=== PATIENT | male | born 1975 | race Caucasian/White ===

== ENCOUNTER 2020-03-01 10:53 | Inpatient (IN) | payer BC, SELFPAY ==
[2020-03-01] VITALS (29 sets, daily range): BP systolic 151–192; BP diastolic 103–150; PULSE 86–112; RESP 18–31; TEMP 36.1–36.8; O2SAT 94–100; BMI 34.7
--- NOTE | ~2020-03-01 | XR_ITS ---
EXAMINATION: XR chest 2V DATE: 03/01/2020 11:36 INDICATION: Shortness of breath and cough TECHNIQUE: Frontal and lateral views of the chest are obtained COMPARISON: 09/28/2007 FINDINGS: Cardiomegaly is noted. There is no pleural effusion or pneumothorax. The visualized osseous structures are normal. No focal airspace opacities are identified. IMPRESSION: 1. Cardiomegaly. Reviewed, dictated and finalized at location A. IMPRESSION: 1. Cardiomegaly.
--- NOTE | ~2020-03-01 | US_ITS ---
EXAMINATION: US renal BI DATE: 03/01/2020 15:25 INDICATION: Renal failure TECHNIQUE: Multiple ultrasound grayscale images of the kidneys were obtained. COMPARISON: None. FINDINGS: The right kidney measures 11.0 x 5.4 x 5.2 cm. The left kidney measures 9.4 x 7.0 x 5.9 cm. Bilateral increased renal cortical echogenicity consistent with medical renal disease. There is no hydronephro sis in either kidney. No stones identified. The bladder is normal. IMPRESSION: 1. Bilateral increased renal cortical echogenicity consistent with medical renal disease. No hydrone phrosis. Reviewed, dictated and finalized at location A. IMPRESSION: 1. Bilateral increased renal cortical echogenicity consistent with medical omega al disease. No hydronephrosis.
--- NOTE | ~2020-03-01 | US_ITS ---
EXAMINATION: US venous doppler [facility] DATE: 03/02/2020 08:19 INDICATION: Lower limb edema TECHNIQUE: Weber scale images without and with compression and Doppler images of the bilateral lower e xtremity veins were obtained. COMPARISON: None FINDINGS: The right common femoral vein, profunda femoral vein, femoral vein, popliteal vein, peroneal trunk, p osterior tibial veins, and greater saphenous vein are patent. The left common femoral vein, profunda femoral vein, femoral vein, popliteal vein, peroneal trunk, po sterior tibial veins, and greater saphenous vein are patent. IMPRESSION: 1. Patent bilateral lower extremity veins. No evidence of deep venous thrombosis. Reviewed, dictated and finalized at location A. IMPRESSION: 1. Patent bilateral lower extremity veins. No evidence of deep venous thrombosi s.
--- NOTE | 2020-03-01 11:09 | ECG_ITS ---
Measurements Intervals [place] Rate: 110 P: 44 IL: 143 QRS: 1 QRSD: 98 T: 135 QT: 336 QTc: 455 Interpretive Statements SINUS TACHYCARDIA LEFT ATRIAL ENLARGEMENT LEFT VENTRICULAR HYPERTROPHY AND ST-T CHANGE BORDERLINE ST-T WAVE ABNORMALITY- LATERAL LEADS CANNOT RULE OUT SEPTAL INFARCT, AGE INDETERMINATE BASELINE ARTIFACT- I, II, AVR, AVL ABNORMAL ECG Electronically Signed On 03-01-2020 11:50:39 CDT by David Evans D.O.
--- NOTE | 2020-03-01 11:10 | ED.SOB ---
HPI - SOB/Dyspnea General Chief Complaint: Extremity Problem,Nontraumatic Stated Complaint: high blood pressure/edema Time Seen by Provider: 03/01/20 11:01 History of Present Illness HPI Narrative: Bilateral lower extremity swelling for the past several days. Getting worse. Associated with cough, SOB and easy fatigue. Noted to have severly elevated blood pressure during triage. He reports h/o hypertension currently untreated. No chest pain, fever, nausea, vomiting. Related Data Home Medications Medication Instructions Recorded Confirmed No Home Medications 03/01/20 03/01/20 Allergies Allergy/AdvReac Type Severity Reaction Status Date / Time No Known Allergies Allergy Mild Verified 03/01/20 14:55 Review of Systems Review of Systems: All systems reviewed & are unremarkable except as noted in HPI and below Constitutional: Constitutional: Denies chills, Reports fatigue, Denies fever(s) and Denies weakness ENT: Denies dizziness Cardiovascular: Cardiovascular: Denies chest pain Respiratory: Respiratory: Reports dyspnea PMFSH Family History Family History Father Bladder cancer Mother Breast cancer Social History Social History Smoking status: Never smoker Second hand tobacco smoke exposure: No Alcohol intake: never Substance use: never Spiritual care concerns: No Exam Const: General: no acute distress and alert Orientation/consciousness: patient oriented x3 HENMT: Head: normal to inspection Neck: Neck: normal visual inspection Chest: Chest palpation & inspection: normal inspection of the chest Resp: Effort & Inspection: tachypneic Auscultation: clear to auscultation bilaterally Cardio: Rate: tachycardic Rhythm: regular rhythm GI: GI Palp: Yes Soft to palpation and No Tenderness to palpation present (GI) Skin: General skin exam: normal color Neuro: General: patient oriented x3, moves all extremities and CN's II-XI intact bilaterally Speech: Abnormal speech present Extrem: General: edema (2+) bilateral Course Vital Signs Vital signs: Vital Signs Temperature 36.4 C L 03/01/20 11:03 Pulse Rate 111 H 03/01/20 11:03 Respiratory Rate 18 03/01/20 11:03 Blood Pressure 183/142 H 03/01/20 11:03 Pulse Oximetry 100 03/01/20 11:03 Temperature 36.6 C 03/01/20 13:37 Pulse Rate 95 03/01/20 14:00 Respiratory Rate 22 H 03/01/20 13:37 Blood Pressure 165/113 H 03/01/20 13:37 Pulse Oximetry 98 03/01/20 13:37 MDM - SOB/Dyspnea MDM Narrative Medical decision making narrative: He has exam, x-ray, and lab finding concerning for CHF. This is new for him. I will plan to admit him to the IMU for further evaluation and treatment. Differential Diagnosis Differential diagnosis: Likely congestive heart failure and community acquired pneumonia Medical Records Attestation: I reviewed the patient's medical records. Lab Data Attestation: I reviewed the patient's lab results. Result diagrams: 03/01/20 11:14 03/01/20 11:13 Labs: Lab Results 03/01/20 03/01/20 03/01/20 Range/Units 11:13 11:13 11:14 WBC 11.1 H (4.5-10.0) K/mm3 RBC 5.46 (4.6-6.20) M/mm3 Hgb 17.2 (14.0-18.0) g/dL Hct 49.2 (42.0-52.0) % MCV 90.1 (80-100) fl MCH 31.5 (26-34) pg MCHC 35.0 (32-36) g/dl RDW 13.8 (11.5-14.5) % Plt Count 371 (150-375) k/mm3 MPV 9.6 (7.4-10.4) fl Immature Gran % (Auto) 0.4 (0-0.5) % Neut % (Auto) 70.9 (45.5-73.1) % Lymph % (Auto) 19.6 (18.3-44.2) % Frederick % (Auto) 7.2 (2.6-8.5) % Eos % (Auto) 1.3 (0-4.4) % Baso % (Auto) 0.6 (0.2-1.2) % Lymph # (Auto) 2.18 (0.9-3.2) K/mm3 Frederick # (Auto) 0.8 H (0.1-0.6) K/mm3 Eos # (Auto) 0.1 (0-0.3) K/mm3 Baso # (Auto) 0.1 (0.0-0.1) K/mm3 Abs Immat Gran (auto) 0.04 H (0.00-0.031) K/mm3 Absolute N
[2020-03-01 11:29] LABS: Basophils Absolute Auto 0.1 K/mm3 (0.0-0.1); Basophils Percent Auto 0.6 % (0.2-1.2); Eosinophils Absolute Auto 0.1 K/mm3 (0-0.3); Eosinophils Percent Auto 1.3 % (0-4.4); Hematocrit 49.2 % (42.0-52.0); Hemoglobin 17.2 g/dL (14.0-18.0); Immature Granulocyte Absolute 0.04 K/mm3 (0.00-0.031); Immature Granulocyte Percent A 0.4 % (0-0.5); Lymphocytes Absolute Auto 2.18 K/mm3 (0.9-3.2); Lymphocytes Percent Auto 19.6 % (18.3-44.2); Mean Corpuscular Hemoglobin 31.5 pg (26-34); Mean Corpuscular Volume 90.1 fl (80-100); Mean Platelet Volume 9.6 fl (7.4-10.4); Monocytes Absolute Auto 0.8 K/mm3 (0.1-0.6); Monocytes Percent Auto 7.2 % (2.6-8.5); Neutrophils Absolute Auto 7.9 K/mm3 (1.3-6.7); Neutrophils Percent Auto 70.9 % (45.5-73.1); Platelet Count Result 371 k/mm3 (150-375); Red Blood Count 5.46 M/mm3 (4.6-6.20); Red Cell Distribution Width 13.8 % (11.5-14.5); White Blood Count 11.1 K/mm3 (4.5-10.0)
[2020-03-01] MEDS: METOPROLOL TARTRATE INJ 5 MG/5 ML VIAL IV PUSH (11:34)
[2020-03-01] MEDS: NITROGLYCERIN OINTMENT 1 INCH DOSE TRANSDERM ×3 (11:35→23:53)
[2020-03-01 11:38] LABS: Anion Gap 7 mmol/L (8-16); Blood Urea Nitrogen 22 mg/dL (9-20); Calcium 8.5 mg/dL (8.4-10.2); Carbon Dioxide 25 mmol/L (22-30); Chloride 104 mmol/L (98-107); Estimated CRCL calculation 65 ml/min; Estimated Glomerular Filt Rate 51; Glucose 119 mg/dL (75-110); Potassium 4.4 mmol/L (3.4-5.0); Sodium 136 mmol/L (137-145)
[2020-03-01 11:40] LABS: INR 1.3; Prothrombin Time 15.4 Seconds (11.1-14.7)
[2020-03-01 11:41] LABS: Partial Thromboplastin Time 25.9 SECONDS (22.3-36.8)
[2020-03-01 11:54] LABS: NT Pro B Type Natriuretic Pept 3430 PG/ML (5-100); Troponin I 0.042 ng/mL (0.000-0.034)
[2020-03-01] MEDS: FUROSEMIDE INJ 40 MG/4 ML VIAL IV PUSH ×2 (12:07→21:41)
--- NOTE | 2020-03-01 13:40 | ECHO_ITS ---
Patient Info Name: Sterling Mckeon Age: 44 years : 1975 Gender: Male Ht: 68 in Wt: 209 lbs BSA: 2.16 m2 HR: 100 bpm BP: 165 / 113 mmHg Heart Rhythm: Sinus Rhythm Technical Quality: Good Exam Date: 03/01/2020 3:37 PM Exam Location: [facility] Patient Status: Inpatient Admit Date: 03/01/2020 Staff Ordering Physician: Shane Bueno MD Sales And Training Specialist: Garrison Allred RDCS Attending Provider: Fidelia Roland MD Referring Physician: Ximena PA; Exam Type: CA echo dop color flow w con Study Info Indications I50.9 - Heart failure, unspecified Complete two-dimensional, color flow and Doppler transthoracic echocardiogram is performed with contrast to opacify the left ventricle and to improve the deliniation of the left ventricle endocardial borders. Contrast/Agitated Saline Contrast/Ag. Saline: Definity Amount: 3.00 ml Administered By: Valarie Springer RN Existing IV Access: Yes History/Risk Factors Edema; CHF w/ BNP 3430, elevated trops, cardiomegaly, SOB, HTN, orthopnea. Summary 1. Left ventricular chamber dimension is moderately enlarged. 2. Left ventricular systolic function is severely reduced, estimated EF 25-30%. 3. There is overall mildly increased left ventricular wall thickness except for the mid to distal anteroseptal wall and apex that appears thinned. 4. There is global hypokinesis more pronounced in the distal anteroseptal wall and apex. 5. There is LV apical thrombus noted mesures 1X1.5 cm. 6. Right ventricular chamber dimension is top normal in size. 7. Right ventricular systolic function is normal. 8. Left atrial chamber dimension is mildly enlarged. 9. The mitral valve has thickened leaflets. 10. There is mild to moderate mitral valve regurgitation. MR severity could be underestimated due to excentric jet. 11. There is mild tricuspid valve regurgitation. 12. Moderate pulmonary hypertension, estimated pulmonary arterial systolic pressure is 45-50 mmHg. 13. Dilated inferior vena cava with no collapse upon inspiration consistent with elevated right atrial pressure. 14. There is no pericardial effusion. Left Ventricle Left ventricular chamber dimension is moderately enlarged. Left ventricular systolic function is severely reduced, estimated EF 25-30%. There is overall mildly increased left ventricular wall thickness except for the mid to distal anteroseptal wall and apex that appears thinned. There is global hypokinesis more pronounced in the distal anteroseptal wall and apex. The left ventricular diastolic function is abnormal. There is LV apical thrombus noted mesures 1X1.5 cm. E/e' is elevated suggestive of elevated left atrial pressure. Right Ventricle Right ventricular chamber dimension is top normal in size. Right ventricular systolic function is normal. Left Atria Left atrial chamber dimension is mildly enlarged. Right Atria Right atrial chamber dimension is normal. Aortic Valve The aortic valve is trileaflet. There is no aortic valve sclerosis. There is no aortic valve stenosis. There is no aortic valve regurgitation. Pulmonic Valve The pulmonic valve is normal. There is no pulmonic valve stenosis. There is no pulmonic regurgitation. Mitral Valve The mitral valve has thickened leaflets. There is no mitral valve stenosis. There is mild to moderate mitral valve regurgitation. MR severity could be underestimated due to excentric jet. [facility]
--- NOTE | 2020-03-01 14:09 | PM.CNCAR ---
Assessment and Plan Assessment and plan (1) Congestive heart failure: Code(s): I50.9 - Heart failure, unspecified Status: Acute Assessment and Plan: He has new onset of congestive heart failure, possibly from hypertensive heart disease with long standing uncontrolled/untreated HTN. Other etiology include ischemia or valvular disease Will check 2D echocardiogram to assess LV function and rule out valvular disease Start Lasix 40 mg IV BID with close monitoring of in/out and kidney function If echo shows low EF then would prefer use BB/YANETH for BP control. For now will start Metoprolol 25 mg daily. Follow creatinine while diurising. If stable will start YANETH. He also has nitro paste on (2) Hypertensive emergency: Code(s): I16.1 - Hypertensive emergency Status: Acute Assessment and Plan: With evidence of end organ damage suggested by decompensated CHF and Cr of 1.5 Plan as above History of Present Illness History of Present Illness Consult date/time: 03/01/20 14:09 44 y/o with no significant past medical history however no medical follow up for years who presented with lower ext edema He reports fatigue and lack of energy with possibly dyspnea on exertion for few weeks. Over the last few days he has worsening lower ext edema as well as orthopnea. He was trying to see family doctor and appointment scheduled next week but eventually he decide to seek medical attention and presented to ER. He was noted to have markedly elevated BP at 190/150 on admission. Chest X ray showed cardiomegaly. His BNP is elevated at 3400 and his initial trop is 0.04. Creatinine 1.5 with unknown baseline. He received lasix, IV metoprolol and has nitro patch placed. Most recent BP 158/90 EKG shows normal sinus rhythm with LVH criteria and secondary repolarization changes He reports family history of heart disease on his mother side. Never smoker. rare alcohol abuse Reason For Visit: Lower extremity edema. Review of Systems Review of Systems: All systems reviewed & are unremarkable except as noted in HPI and below Constitutional: Constitutional: Reports fatigue and Denies headache(s) Eyes: Eyes: Denies blurry vision ENT: Reports Normal hearing present and Denies headache(s) Cardiovascular: Cardiovascular: Denies chest pain, Denies diaphoresis, Reports pedal edema, Reports leg edema, Denies lightheadedness, Denies palpitations and Denies dyspnea Respiratory: Respiratory: Reports cough and Reports dyspnea Gastrointestinal: Gastrointestinal: Denies abdominal pain Musculoskeletal: Musculoskeletal: Denies back pain Neurologic: Reports Normal hearing present and Denies headache(s) Psychiatric: Psychiatric: Denies anxiety Endocrine: Endocrine: Denies fatigue and Denies palpitations PMFSH Social History Social History Gender identity (if verbalized by the patient): Male Meds Home Medications and Allergies Home Medications Medication Instructions Recorded Confirmed Type No Home Medications 03/01/20 03/01/20 History Allergies Allergy/AdvReac Type Severity Reaction Status Date / Time No Known Allergies Allergy Mild Verified 03/01/20 11:02 Vital Signs Vital Signs - 24 hr 03/01/20 11:03 03/01/20 11:04 03/01/20 11:15 Temperature 36.4 C L Pulse Rate 110 H 111 H 109 H Respiratory Rate 23 H 19 26 H Blood Pressure 183/142 H 192/150 H Pulse Oximetry 99 95 95 03/01/20 11:16 03/01/20 11:33 03/01/20 11:34 Temperature Pulse Rate 107 H 112 H 112 H Respiratory Rate 20 31 H Blood Pressure 185/131 H Pulse Oximetry 97 98 03/01/20 11:37 03/01/20 11:45 03/01/20 11:46 Temperature Pulse Rate 110 H 95 96 Respiratory Rate 30 H 29 H 23 H Blood Pressure 176/134 H 173/139 H Pulse Oximetry 96 94 95 03/01/20 12:00 03/01/20 12:01 03/01/20 12:09 Temperature Pulse Rate 94 96 98 Respiratory Rate 25 H 24 H 21 H Blood Pressure 171/135 H 171/135 H Pulse O
--- NOTE | 2020-03-01 14:40 | PM.IMHP ---
H&P: HPI History of Present Illness Date/Time: 03/01/20 14:40 Chief complaint: Lower extremity edema. Narrative: Sterling Mckeon is a 44-year-old male who presented to the emergency department earlier today for evaluation of lower extremity edema. He maintains that he is pretty healthy, indicating that he tries to eat a healthy diet and exercises frequently, including 1 to 2 mile runs and frequent hikes up the [employer]. Within the last month or so, he has developed dyspnea on exertion which he initially attributed to deconditioning from the the inability to go to the gym due to the COVID-19 virus. In the last week or more, he has had intermittent lower extremity edema and on a couple of occasions he has woken in the middle the night with shortness of breath that he attributed to panic attacks. He decided to go to [facility] today for evaluation and was directed to the emergency department instead, where on arrival his blood pressure was as high as 192/150. Upon further questioning, he admits that he has been told that his blood pressures have been a little high various times over the years, dating as far back as 2002. He was seen here in the emergency department in September of 2007 and at that time he was discharged with a prescription for hydralazine 20 mg as his blood pressure was 180/119. It sounds as though he took 2 months worth of that medication but stopped for unclear reasons. Over the years he has checked his blood pressure [facility] or the like, and on occasion would be a little high. He thought through diet and exercise that his blood pressure was controlled, and it does not sound as though he sees a doctor very often. In any regard, he has also been more fatigued over the past 1 month, to the point where he will nod off at inconvenient times, such as at the dinner table. At times his father has mentioned that he snores loudly and appears to have episodes of apnea as well. He has no complaints at the time my evaluation and denies headache, vertigo, paresthesias, focal weakness, chest pain, pleuritic pain, and palpitations. he has no known history of coronary artery disease, congestive heart failure, kidney disease, thyroid disease, venous thromboembolism, or sleep apnea. Review of Systems Review of Systems: Narrative: 12 systems were reviewed with pertinent positives and negatives as per HPI. No fever chills. He frequently gets sweats, which he blames on the heat this time of year. He has rare headaches, which he attributes to change in weather. He does suffer from seasonal allergies and has pretty significant postnasal drip this time of year for which she will take Benadryl as needed. He avoids ephedrine type drugs. He denies recent travel and exposure to sick contacts or those positive for COVID-19. His appetite has been as per usual however more recently he notes bloating, even when eating small meals. No symptoms of heartburn or indigestion however he has occasional nausea. He drinks at least 10 glasses of water a day and tries a stay hydrated however over the past 1 month or so he has noticed a decrease in urine output. He denies dysuria, hematuria, foamy urine, urinary hesitancy and urgency. He also has some concerns with inability to maintain a full erection over the last several months. No melena or hematochezia. He has been bit depressed over the last several months, which he attributes to the COVID-19 virus and illness debility to do the things that he enjoys doing. He denies harmful thoughts. Except as documented, all other systems were reviewed and are negative. [facility] Past Medical History Medical History (Updated 03/01/20 @ 18:06 by Tamica Lund PA-C) Hypertension Longstanding hypertension dating back at least to 2007, which has gone untreated as of 02/2020. Seasonal allergies Surgical History Surgical History (Updated 03/01/20 @ 17:59 by Tamica Lund PA-C) No history of previous surgery Family Histo
[2020-03-01 14:47] LABS: Alanine Aminotransferase 60 U/L (4-50); Albumin Level 3.8 g/dL (3.5-5.1); Alkaline Phosphatase 76 U/L (38-126); Aspartate Amino Transferase 56 U/L (17-59); Bilirubin,Total 1.4 mg/dL (0.2-1.3)
[2020-03-01 15:00] LABS: Troponin I 0.042 ng/mL (0.000-0.034)
[2020-03-01 15:33] LABS: Add Urine Microscopic? NO; Appearance Urine Clear (Clear); Bilirubin Urine Negative (Negative); Blood Urine Negative (Negative); Color Urine Straw (Yellow); Glucose Urine UA Negative (Negative); Ketones Urine Negative (Negative); Leukocyte Esterase Ur Negative LEU/UL (NEGATIVE); Nitrate Urine Negative (Negative); Protein Urine Negative (Negative); Specific Grav Ur 1.006 (1.001-1.035); Urobilinogen Urine Negative mg/dL (<2.0)
--- NOTE | 2020-03-01 15:40 | ADMGEN ---
This patient, Sterling Mckeon, was admitted to IMU Room 203-01 on 03-01-2020 at 1310. Patient/family oriented to hospital policies and general routines including ID bracelet, bed and alarms, visiting hours, pain management, procedures, bathroom and other care routines, personal items, smoking policy, room service/diet, and visiting hours. Valuables list has been completed. Information on how to activate the Rapid Response Team has been discussed. Patient/Family are encouraged to report perceived risks to care and to ask questions if they do not understand what they are told or what they should do.
[2020-03-01] MEDS: PERFLUTREN LIPID MICROSPHERES 1.5 ML VIAL DILUTED TO 10 ML TOTAL VOLUME IV PUSH (16:17)
[2020-03-01] MEDS: METOPROLOL SUCCINATE EXT REL 25 MG TABCR PO (16:47)
[2020-03-01 17:25] LABS: INR 1.3; Partial Thromboplastin Time 25.2 SECONDS (22.3-36.8); Prothrombin Time 15.5 Seconds (11.1-14.7)
[2020-03-01 17:42] LABS: Troponin I 0.046 ng/mL (0.000-0.034)
[2020-03-01] MEDS: HEPARIN SOD/D5W 100 UNITS/ML 25,000 UNITS/250 ML BAG 13 UNITS IV CONT (17:43)
[2020-03-01 19:41] LABS: Hemoglobin A1C 5.5 % (<5.7)
[2020-03-02] VITALS (15 sets, daily range): BP systolic 118–174; BP diastolic 60–121; PULSE 76–107; RESP 16–20; TEMP 35.8–36.6; O2SAT 96–100
[2020-03-02 00:37] LABS: Anion Gap 9 mmol/L (8-16); Blood Urea Nitrogen 24 mg/dL (9-20); Calcium 8.3 mg/dL (8.4-10.2); Carbon Dioxide 29 mmol/L (22-30); Chloride 98 mmol/L (98-107); Estimated CRCL calculation 65 ml/min; Estimated Glomerular Filt Rate 56; Glucose 88 mg/dL (75-110); Magnesium 2.1 mg/dL (1.6-2.3); Phosphorus 3.7 mg/dL (2.5-4.5); Potassium 3.1 mmol/L (3.4-5.0); Sodium 136 mmol/L (137-145)
[2020-03-02 00:39] LABS: Partial Thromboplastin Time 68.2 SECONDS (22.3-36.8)
[2020-03-02] MEDS: HEPARIN SODIUM 5,000 UNITS/ML VIAL 3000 UNITS IV PUSH ×2 (00:50→15:25)
[2020-03-02] MEDS: POTASSIUM CHLORIDE 20 MEQ TABLET 40 MEQ PO (01:27)
[2020-03-02] MEDS: NITROGLYCERIN OINTMENT 1 INCH DOSE TRANSDERM ×4 (05:59→23:53)
[2020-03-02 06:51] LABS: Basophils Absolute Auto 0.1 K/mm3 (0.0-0.1); Basophils Percent Auto 0.6 % (0.2-1.2); Eosinophils Absolute Auto 0.3 K/mm3 (0-0.3); Eosinophils Percent Auto 2.9 % (0-4.4); Hematocrit 45.9 % (42.0-52.0); Immature Granulocyte Absolute 0.04 K/mm3 (0.00-0.031); Immature Granulocyte Percent A 0.3 % (0-0.5); Lymphocytes Absolute Auto 2.56 K/mm3 (0.9-3.2); Lymphocytes Percent Auto 21.5 % (18.3-44.2); Mean Corpuscular HGB Conc 34.9 g/dl (32-36); Mean Corpuscular Hemoglobin 31.3 pg (26-34); Mean Corpuscular Volume 89.6 fl (80-100); Mean Platelet Volume 9.1 fl (7.4-10.4); Monocytes Absolute Auto 1.3 K/mm3 (0.1-0.6); Monocytes Percent Auto 10.5 % (2.6-8.5); Neutrophils Absolute Auto 7.7 K/mm3 (1.3-6.7); Neutrophils Percent Auto 64.2 % (45.5-73.1); Platelet Count Result 289 k/mm3 (150-375); Red Blood Count 5.12 M/mm3 (4.6-6.20); Red Cell Distribution Width 13.3 % (11.5-14.5); White Blood Count 11.9 K/mm3 (4.5-10.0)
[2020-03-02 07:02] LABS: Partial Thromboplastin Time 153.2 SECONDS (22.3-36.8)
[2020-03-02 07:05] LABS: Alanine Aminotransferase 60 U/L (4-50); Albumin Level 3.5 g/dL (3.5-5.1); Alkaline Phosphatase 81 U/L (38-126); Anion Gap 8 mmol/L (8-16); Aspartate Amino Transferase 59 U/L (17-59); Bilirubin,Total 1.7 mg/dL (0.2-1.3); Blood Urea Nitrogen 20 mg/dL (9-20); Calcium 8.2 mg/dL (8.4-10.2); Carbon Dioxide 27 mmol/L (22-30); Chloride 100 mmol/L (98-107); Cholesterol 187 mg/dL (0-200); Estimated CRCL calculation 69 ml/min; Estimated Glomerular Filt Rate > 60; Glucose 99 mg/dL (75-110); HDL Direct 26 mg/dL; Magnesium 2.1 mg/dL (1.6-2.3); Phosphorus 3.4 mg/dL (2.5-4.5); Potassium 3.6 mmol/L (3.4-5.0); Sodium 135 mmol/L (137-145); Triglycerides 87 mg/dL (<150)
[2020-03-02 07:16] LABS: LDL Cholesterol Direct 152 mg/dL
[2020-03-02] MEDS: METOPROLOL SUCCINATE EXT REL 25 MG TABCR PO ×2 (08:12→08:57)
[2020-03-02] MEDS: FUROSEMIDE INJ 40 MG/4 ML VIAL IV PUSH ×2 (08:13→21:09)
[2020-03-02] MEDS: POTASSIUM CHLORIDE 20 MEQ TABLET.ER PO (08:57)
[2020-03-02] MEDS: hydrALAZINE HCL 20 MG/ML VIAL 10 MG IV PUSH (09:46)
--- NOTE | 2020-03-02 10:27 | PM.IMPN ---
Progress Note: A&P Assessment and Plan (1) Congestive heart failure: Qualifiers: Heart failure chronicity: acute Heart failure type: unspecified Qualified Code(s): I50.9 - Heart failure, unspecified Code(s): I50.9 - Heart failure, unspecified Status: Acute Assessment and Plan: Likely due to longstanding uncontrolled and untreated hypertension. Echocardiogram results: 1. Left ventricular chamber dimension is moderately enlarged. 2. Left ventricular systolic function is severely reduced, estimated EF 25-30%. 3. There is overall mildly increased left ventricular wall thickness except for the mid to distal anteroseptal wall and apex that appears thinned. 4. There is global hypokinesis more pronounced in the distal anteroseptal wall and apex. 5. There is LV apical thrombus noted mesures 1X1.5 cm. 6. Right ventricular chamber dimension is top normal in size. 7. Right ventricular systolic function is normal. 8. Left atrial chamber dimension is mildly enlarged. 9. The mitral valve has thickened leaflets. 10. There is mild to moderate mitral valve regurgitation. MR severity could be underestimated due to excentric jet. 11. There is mild tricuspid valve regurgitation. 12. Moderate pulmonary hypertension, estimated pulmonary arterial systolic pressure is 45-50 mmHg. 13. Dilated inferior vena cava with no collapse upon inspiration consistent with elevated right atrial pressure. 14. There is no pericardial effusion. 03/02, increased metoprolol and added ACEI Continue diuresis Consider spironolactone (2) Hypertensive emergency: Code(s): I16.1 - Hypertensive emergency Status: Acute Assessment and Plan: Evidence of end organ damage with decompensated congestive heart failure and elevated troponin and serum creatinine (now normalized) PRN hydralazine for bp 160/100 or higher Continue furosemide for diuresis, nitro paste, and metoprolol succinate increased to 50 mg daily. Possible coronary angio per cardiology (3) Renal failure: Code(s): N19 - Unspecified kidney failure Status: Acute Assessment and Plan: Renal ultrasound shows bilateral increased renal cortical echogenicity consistent with medical renal disease. Creatinine normalized 03/02 (4) Elevated troponin: Code(s): R79.89 - Other specified abnormal findings of blood chemistry Status: Acute Assessment and Plan: Likely due to decompensated congestive heart failure and hypertensive emergency, as he gives no history of chest pain or exertional chest pain. Further evaluation per cardiology (5) Suspected sleep apnea: Code(s): R29.818 - Other symptoms and signs involving the nervous system Status: Acute Assessment and Plan: Apnea link c/w moderately severe JACLYN Trial of autotitrating cpap. (6) Apical mural thrombus: Code(s): I51.3 - Intracardiac thrombosis, not elsewhere classified Status: Acute Assessment and Plan: Heparin Will likely require intermission coordinator anticoagulation (7) Mitral regurgitation: Code(s): I34.0 - Nonrheumatic mitral (valve) insufficiency Status: Acute Assessment and Plan: ACEI DIuresis Subjective Date/time seen: 03/02/20 10:27 Interval history: 03/02. No chest pain or sob. Tolerated diet. Less swelling in ankles. Review of Systems Review of Systems: All systems reviewed & are unremarkable except as noted in HPI and below Exam Narrative: Exam Narrative: HEENT: EOMI, PERRL, sclerae nonicteric, pharyngeal mucosa pink and intact NECK: No JVD, adenopathy, or thyromegaly CHEST
[2020-03-02] MEDS: POTASSIUM CHLORIDE 20 MEQ TABLET PO (11:36)
[2020-03-02] MEDS: HEPARIN SOD/D5W 100 UNITS/ML 25,000 UNITS/250 ML BAG 12 UNITS IV CONT (13:11)
--- NOTE | 2020-03-02 13:50 | PM.PNCARD ---
Progress Note: A&P Assessment and Plan (1) Congestive heart failure: Qualifiers: Heart failure chronicity: acute Heart failure type: unspecified Qualified Code(s): I50.9 - Heart failure, unspecified Code(s): I50.9 - Heart failure, unspecified Status: Acute Assessment and Plan: He has new discovery of cardiomyopathy with EF 25-30% and new onset of congestive heart failure. he was also found to have LV apical thrombus He will need [facility] to assess for ischemic vs non ischemic cardiomyopathy. Will plan that once better compensated from CHF standpoint, potentially on Wednesday He was started on Metoprolol. Agree with increasing dose to 50 mg daily Will add Lisinopril 10 mg daily Continue Lasix 40 mg IV BID with close monitoring of in/out and kidney function. So far creatinine improving with effective diuresing (Net negative 2 liters over the last 24 hours) (2) Hypertensive emergency: Code(s): I16.1 - Hypertensive emergency Status: Acute Assessment and Plan: With evidence of end organ damage suggested by decompensated CHF and Cr of 1.5 BP better compared to admission. Metoprolol dose increased. Will start Lisinopril today. (3) Apical mural thrombus: Code(s): I51.3 - Intracardiac thrombosis, not elsewhere classified Status: Acute Assessment and Plan: Continue IV heparin. Will eventually need to start warfarin once angiogram completed. (4) Mitral regurgitation: Code(s): I34.0 - Nonrheumatic mitral (valve) insufficiency Status: Acute Assessment and Plan: Mild to moderate. probably secondary MR due to dilated LV and mitral annulus Subjective Date/time seen: 03/02/20 13:50 Pre harper echo report showed LV dysfunction and apical thrombus. he was started on heparin. He feels better overall and leg edema is going down He has some left sided chest pain that is positional and he feels it only when he lays down in certain way Tele reviewed. He had short run of NSVT overnight Review of Systems Review of Systems: All systems reviewed & are unremarkable except as noted in HPI and below Constitutional: Constitutional: Denies fatigue and Denies headache(s) Eyes: Eyes: Denies blurry vision ENT: Reports Normal hearing present and Denies headache(s) Cardiovascular: Cardiovascular: Denies chest pain, Denies diaphoresis, Reports pedal edema, Reports leg edema, Denies lightheadedness, Denies palpitations and Reports dyspnea Respiratory: Respiratory: Reports cough and Reports dyspnea Gastrointestinal: Gastrointestinal: Denies abdominal pain Musculoskeletal: Musculoskeletal: Denies back pain Neurologic: Reports Normal hearing present and Denies headache(s) Psychiatric: Psychiatric: Denies anxiety Endocrine: Endocrine: Denies fatigue and Denies palpitations Exam Const: General: no acute distress Eyes: Sclera: sclerae normal Neck: Neck: no JVD Carotids: no bruits Resp: Effort & Inspection: normal respiratory effort Auscultation: clear to auscultation bilaterally Cardio: Rate: regular rate and not tachycardic Rhythm: regular rhythm Heart sounds: no gallops, no murmurs and no rubs Other: ++ lower ext edema Skin: General skin exam: normal color Neuro: Cranial nerves: Yes Normal hearing present Speech: normal speech Extrem: General: normal to inspection and edema Psych: Affect: normal affect Objective Data Vital Signs Vital Signs: Vital Signs - 24 hr 03/01/20 14:00 03/01/20 16:00 03/01/20 16:47 Temperature 36.8 C Pulse Rate 95 99 99 Respiratory Rate 20 Blood Pressure 164/103 H Pulse Oximetry 97 03/01/20 18:00 03/01/20 19:37 03/01/20 20:00 Temperature 36.1 C L Pulse Rate 99 95 92 Respiratory Rate 20 Blood Pressure 152/109 H Pulse Oximetry 96 03/01/20 22:00 03/02/20 00:00 03/02/20 02:00 Temperature 36.3 C L Pulse Rate 97 91 91 Respiratory Rate 20 Blood Pressure 167/119 H Pulse Ox
[2020-03-02] MEDS: lisinopriL 10 MG TABLET PO (14:58)
[2020-03-02 15:09] LABS: Partial Thromboplastin Time 56.2 SECONDS (22.3-36.8)
[2020-03-02 22:05] LABS: Partial Thromboplastin Time 83.7 SECONDS (22.3-36.8)
[2020-03-03] VITALS (16 sets, daily range): BP systolic 111–137; BP diastolic 74–86; PULSE 77–103; RESP 16–20; TEMP 36–36.5; O2SAT 94–98
[2020-03-03 04:25] LABS: Anion Gap 7 mmol/L (8-16); Blood Urea Nitrogen 19 mg/dL (9-20); Calcium 8.5 mg/dL (8.4-10.2); Carbon Dioxide 29 mmol/L (22-30); Chloride 98 mmol/L (98-107); Estimated CRCL calculation 69 ml/min; Estimated Glomerular Filt Rate > 60; Glucose 100 mg/dL (75-110); Magnesium 2.3 mg/dL (1.6-2.3); Potassium 3.5 mmol/L (3.4-5.0); Sodium 134 mmol/L (137-145)
[2020-03-03 04:27] LABS: Partial Thromboplastin Time 79.4 SECONDS (22.3-36.8)
[2020-03-03] MEDS: NITROGLYCERIN OINTMENT 1 INCH DOSE TRANSDERM ×3 (06:35→18:02)
[2020-03-03] MEDS: HEPARIN SOD/D5W 100 UNITS/ML 25,000 UNITS/250 ML BAG 13 UNITS IV CONT (08:56)
[2020-03-03] MEDS: FUROSEMIDE INJ 40 MG/4 ML VIAL IV PUSH (08:58)
[2020-03-03] MEDS: lisinopriL 10 MG TABLET PO (09:01)
[2020-03-03] MEDS: POTASSIUM CHLORIDE 20 MEQ TABLET.ER PO (09:01)
[2020-03-03] MEDS: METOPROLOL SUCCINATE EXT REL 50 MG TABCR PO (09:07)
--- NOTE | 2020-03-03 10:32 | PM.IMPN ---
Progress Note: A&P Assessment and Plan (1) Congestive heart failure: Qualifiers: Heart failure chronicity: acute Heart failure type: unspecified Qualified Code(s): I50.9 - Heart failure, unspecified Code(s): I50.9 - Heart failure, unspecified Status: Acute Assessment and Plan: Patient with newly diagnosed CHF. Likely due to longstanding uncontrolled and untreated HTN. Echocardiogram results: EF 25-30%, thickened LV wall except for the mid to distal anteroseptal wall and apex that appears thinned. Symptomatically much improved. Currently on Lasix IV, nitropaste, Toprol-XL and lisinopril. Consider Aldactone. Cardiology following and appreciate their input. (2) Hypertensive emergency: Code(s): I16.1 - Hypertensive emergency Status: Acute Assessment and Plan: BP 192/150 on admission. Evidence of end organ damage with decompensated congestive heart failure and elevated troponin and serum creatinine. BP better controlled today (03/03). Continue furosemide for diuresis, nitro paste, and metoprolol succinate increased to 50 mg daily. PRN hydralazine for bp 160/100 or higher available. Continue to monitor. (3) Renal failure: Code(s): N19 - Unspecified kidney failure Status: Acute Assessment and Plan: Patient with acute kidney injury with creatinine 1.5 on admission. Renal ultrasound shows bilateral increased renal cortical echogenicity consistent with medical renal disease felt related to his uncontrolled hypertension. Creatinine has normalized. Continue to monitor closely after contrast. (4) Elevated troponin: Code(s): R79.89 - Other specified abnormal findings of blood chemistry Status: Acute Assessment and Plan: Troponin elevated to 0.046 but flat. Most likely related to the decompensated congestive heart failure and hypertensive emergency. Cannot exclude underlying ischemic heart disease but felt less likely. Patient will undergo ischemic evaluation to help determine etiology of his CHF. (5) Suspected sleep apnea: Code(s): R29.818 - Other symptoms and signs involving the nervous system Status: Acute Assessment and Plan: Apnea link c/w moderately severe JACLYN. Trial of autotitrating CPAP last night that patient toelrated well. Continue the same. (6) Apical mural thrombus: Code(s): I51.3 - Intracardiac thrombosis, not elsewhere classified Status: Acute Assessment and Plan: Echo showing: LV apical thrombus noted measures 1X1.5 cm. Related to the severe LV dysfunction. Patient has been started on heparin drip. He will need long-term anticoagulation. This is currently on hold due to possible heart catheterization tomorrow. (7) Mitral regurgitation: Code(s): I34.0 - Nonrheumatic mitral (valve) insufficiency Status: Acute Assessment and Plan: Echo showing mild to moderate mitral valve regurgitation. MR severity could be underestimated due to excentric jet. will need close monitoring. Subjective Date/time seen: 03/03/20 10:32 Interval history: 44yo male with HTN here for new onset CHF. Patient feels well today. He tolerated the CPAP last night without difficulty. He slept well. Minimal pedal edema now. No chest pain. No nausea or vomiting. Shortness of breath is better. Exam Narrative: Exam Narrative: AF 96.8 137/86 90 20 98% ra Gen - NARD Chest - CTA bilaterally, nml RR CV - RRR S1/S2; Telemetry showing significant dysrhythmias Abd - Soft, NT/ND, Positive BS Ext - No pedal edema, 2+ DP Neuro - Alert and oriented. Nonfocal exam. Psych - Nml mood and affect Skin - Warm and dry Objec
--- NOTE | 2020-03-03 14:13 | PM.PNCARD ---
Progress Note: A&P Assessment and Plan (1) Congestive heart failure: Qualifiers: Heart failure chronicity: acute Heart failure type: unspecified Qualified Code(s): I50.9 - Heart failure, unspecified Code(s): I50.9 - Heart failure, unspecified Status: Acute Assessment and Plan: He has new discovery of cardiomyopathy with EF 25-30% He was also found to have LV apical thrombus Will plan [facility] tomorrow to assess for ischemic vs non ischemic cardiomyopathy.No LV gram due to LV thrombus and CHRISTINE on admission He was started on Metoprolol and Lisinopril. Will up titrate dose as BP allows He appears better compensated from CHF standpoint. Will siwthc lasix to Po He had short run of NSVT. May need lifeVest on discharge He is on IV heparin for LV clot. Following [facility] tomorrow will start oral AC (2) Hypertensive emergency: Code(s): I16.1 - Hypertensive emergency Status: Acute Assessment and Plan: With evidence of end organ damage suggested by decompensated CHF and Cr of 1.5 BP better compared to admission. Continue Metoprolol and Lisinopril (3) Apical mural thrombus: Code(s): I51.3 - Intracardiac thrombosis, not elsewhere classified Status: Acute Assessment and Plan: Continue IV heparin. Will eventually need to start oral AC once angiogram completed. (4) Mitral regurgitation: Code(s): I34.0 - Nonrheumatic mitral (valve) insufficiency Status: Acute Assessment and Plan: Mild to moderate. probably secondary MR due to dilated LV and mitral annulus. Continue Lasix Subjective Date/time seen: 03/03/20 14:13 Feels better and leg edema has resolved as well as dyspnea Tele reviewed. Short run of NSVT noted Review of Systems Review of Systems: All systems reviewed & are unremarkable except as noted in HPI and below Constitutional: Constitutional: Denies fatigue and Denies headache(s) Eyes: Eyes: Denies blurry vision ENT: Reports Normal hearing present and Denies headache(s) Cardiovascular: Cardiovascular: Denies chest pain, Denies diaphoresis, Reports pedal edema, Reports leg edema, Denies lightheadedness, Denies palpitations and Reports dyspnea Respiratory: Respiratory: Reports cough and Reports dyspnea Gastrointestinal: Gastrointestinal: Denies abdominal pain Musculoskeletal: Musculoskeletal: Denies back pain Neurologic: Reports Normal hearing present and Denies headache(s) Psychiatric: Psychiatric: Denies anxiety Endocrine: Endocrine: Denies fatigue and Denies palpitations Exam Const: General: no acute distress Eyes: Sclera: sclerae normal Neck: Neck: no JVD Carotids: no bruits Resp: Effort & Inspection: normal respiratory effort Auscultation: clear to auscultation bilaterally Cardio: Rate: regular rate and not tachycardic Rhythm: regular rhythm Heart sounds: no gallops, no murmurs and no rubs Other: ++ lower ext edema Skin: General skin exam: normal color Neuro: Cranial nerves: Yes Normal hearing present Speech: normal speech Extrem: General: normal to inspection and edema Psych: Affect: normal affect Objective Data Vital Signs Vital Signs: Vital Signs - 24 hr 03/02/20 16:00 03/02/20 18:00 03/02/20 19:52 Temperature 36.6 C 36.2 C L Pulse Rate 96 107 H 86 Respiratory Rate 20 16 Blood Pressure 136/81 118/60 Pulse Oximetry 98 96 03/02/20 20:00 03/02/20 22:00 03/03/20 00:00 Temperature 36.2 C L Pulse Rate 91 90 87 Respiratory Rate 16 Blood Pressure 111/78 Pulse Oximetry 94 03/03/20 02:00 03/03/20 03:27 03/03/20 04:00 Temperature 36.2 C L Pulse Rate 80 77 Respiratory Rate 17 20 Blood Pressure 120/83 Pulse Oximetry 95 03/03/20 06:00 03/03/20 07:59 03/03/20 08:00 Temperature 36.0 C L Pulse Rate 79 88 88 Respiratory Rate 20 20 Blood Pressure 137/86 Pulse Oximetry 98 98 03/03/20 10:00 03/03/20 11:54 03/03/20 12:00 Temperature 36.3 C L
[2020-03-04] VITALS (25 sets, daily range): BP systolic 118–157; BP diastolic 84–111; PULSE 83–107; RESP 10–20; TEMP 36.1–37.1; O2SAT 94–99
[2020-03-04] MEDS: NITROGLYCERIN OINTMENT 1 INCH DOSE TRANSDERM ×2 (00:02→05:55)
[2020-03-04] MEDS: HEPARIN SOD/D5W 100 UNITS/ML 25,000 UNITS/250 ML BAG 13 UNITS IV CONT (05:53)
[2020-03-04 06:51] LABS: Hematocrit 50.3 % (42.0-52.0); Hemoglobin 17.2 g/dL (14.0-18.0); Mean Corpuscular HGB Conc 34.2 g/dl (32-36); Mean Corpuscular Volume 90.6 fl (80-100); Mean Platelet Volume 9.6 fl (7.4-10.4); Platelet Count Result 291 k/mm3 (150-375); Red Blood Count 5.55 M/mm3 (4.6-6.20); Red Cell Distribution Width 13.3 % (11.5-14.5); White Blood Count 9.5 K/mm3 (4.5-10.0)
[2020-03-04 07:24] LABS: Partial Thromboplastin Time 85.9 SECONDS (22.3-36.8)
[2020-03-04 07:29] LABS: Albumin Level 3.3 g/dL (3.5-5.1); Anion Gap 6 mmol/L (8-16); Blood Urea Nitrogen 16 mg/dL (9-20); Calcium 8.4 mg/dL (8.4-10.2); Carbon Dioxide 27 mmol/L (22-30); Chloride 101 mmol/L (98-107); Estimated CRCL calculation 73 ml/min; Estimated Glomerular Filt Rate > 60; Glucose 90 mg/dL (75-110); Magnesium 2.3 mg/dL (1.6-2.3); Phosphorus 4.1 mg/dL (2.5-4.5); Sodium 134 mmol/L (137-145)
[2020-03-04] MEDS: METOPROLOL SUCCINATE EXT REL 50 MG TABCR PO (09:21)
[2020-03-04] MEDS: POTASSIUM CHLORIDE 20 MEQ TABLET.ER PO (09:21)
[2020-03-04] MEDS: lisinopriL 10 MG TABLET PO (09:21)
[2020-03-04] MEDS: FUROSEMIDE 40 MG TABLET PO (09:22)
--- NOTE | 2020-03-04 14:51 | WPDMODSED ---
Moderate Sedation Note-Pt Data Patient Data Allergies Allergy/AdvReac Type Severity Reaction Status Date / Time No Known Allergies Allergy Mild Verified 03/01/20 14:55 Home Medications Medication Instructions Recorded Confirmed Type No Home Medications 03/01/20 03/01/20 History Current Medications: Active Medications Furosemide (Lasix Tablet) 40 mg PO DAILY [facility] Last Admin: 03/04/20 09:22 Dose: 40 mg Documented by: Heparin Sodium (Porcine) (Heparin Sodium) 6,000 units IV PUSH PRN PRN PRN Reason: aPTT less than 55 seconds Heparin Sodium (Porcine) (Heparin Sodium) 3,000 units IV PUSH PRN PRN PRN Reason: aPTT 55 - 70 seconds Last Admin: 03/02/20 15:25 Dose: 3,000 units Documented by: Hydralazine HCl (Apresoline Hcl Inj) 10 mg IV PUSH Q4H PRN PRN Reason: Blood Pressure - High Last Admin: 03/02/20 09:46 Dose: 10 mg Documented by: Heparin Sodium/Dextrose (Heparin Sodium/D5w 100 Units/Ml) 25,000 units in 250 mls @ 13 mls/hr IV CONT .[id number] [facility]; Protocol Last Admin: 03/04/20 05:53 Dose: 1,300 units/hr, 13 mls/hr Documented by: Lisinopril (Prinivil) 10 mg PO DAILY [facility] Last Admin: 03/04/20 09:21 Dose: 10 mg Documented by: Metoprolol Succinate (Toprol Xl) 50 mg PO QAM [facility] Last Admin: 03/04/20 09:21 Dose: 50 mg Documented by: Nitroglycerin (Nitroglycerin Oint 1 Inch) 1 inch TRANSDERM Q6HR [facility] Last Admin: 03/04/20 05:55 Dose: 1 inch Documented by: Potassium Chloride (Kcl Tablet) 20 meq PO DAILY@0800 [facility] Last Admin: 03/04/20 09:21 Dose: 20 meq Documented by: Sodium Chloride ([place] Nasal [place]) 1 spray NASAL Q6HR PRN PRN Reason: Congestion Sedation/Anesthesia: No previous sedation/anesthesia problems (including family history). [facility] Past Medical History Medical History (Updated 03/02/20 @ 13:57 by Nataly Rainey MD) Hypertension Longstanding hypertension dating back at least to 2007, which has gone untreated as of 02/2020. Seasonal allergies Surgical History Surgical History (Updated 03/01/20 @ 17:59 by Tamica Lund PA-C) No history of previous surgery Family History Family History (Updated 03/01/20 @ 18:00 by Tamica Lund PA-C) Father Bladder cancer Mother Breast cancer Other Hypertension Strong family history for hypertension on his maternal side. Social History Social History (Updated 03/01/20 @ 18:01 by Tamica Lund PA-C) Social History: Surrogate decision maker:Ana Mckeon, parents. Code status: Full code. Smoking status: Never smoker Second hand tobacco smoke exposure: No Alcohol intake: never Substance use: never Additional living arrangements comments: Resides with his parents in [place]. He has no children. Additional occupation/education comments: Employed at a local [employer]. Spiritual care concerns: No Mod Sed Physical Exam Physical Exam Pre Procedural Exam: Normal: Appearance, Eyes, Ears, Nose, Neck, Throat, Airway, Lungs, Heart Size, Heart Rate, Heart Rhythm, Neuro Exam, Abdomen, Liver, Kidneys, Spleen, Breasts, Genitalia, Extremities and Skin Hours since solid foods: 8 Hours since liquid intake: 8 Internal Medicine - PN: Obj Da Vital Signs Vital Signs: Vital Signs - 24 hr 03/03/20 16:00 03/03/20 16:39 03/03/20 18:00 Temperature 36.4 C Pulse Rate 103 H 90 87 Respiratory Rate 20 20 Blood Pressure 124/80 Pulse Oximetry 98 98 03/03/20 20:00 03/03/20 22:00 03/04/20 00:00 Temperature 36.5 C 36.6 C Pulse Rate 81 81 84 Respiratory Rate 20 18 Blood Pressure 136/74 143/92 H Pulse Oximetry 94 94 03/04/20 01:55 03/04/20 04:00 03/04/20 05:43 Temperature 36.6 C Pulse Rate 99 91 83 Respiratory Rate 20 Blood Pressure 151/86 H Pulse Oximetry 98 03/04/20 08:00 03/04/20 09:21 03/04/20 10:00 Temperature 36.6 C Pulse Rate 97 103 H 107 H Respiratory Rate 20 Blood Pressure 132/95 H Pulse Oximetry 99 03/04/20 12:00 [place]
--- NOTE | 2020-03-04 15:51 | PM.PNCARD ---
Progress Note: A&P Assessment and Plan (1) Congestive heart failure: Qualifiers: Heart failure chronicity: acute Heart failure type: unspecified Qualified Code(s): I50.9 - Heart failure, unspecified Code(s): I50.9 - Heart failure, unspecified Status: Acute Assessment and Plan: He has new discovery of cardiomyopathy with EF 25-30% He was also found to have LV apical thrombus cardiac catheterization done today showed three-vessel coronary artery disease, he will be needing to be transferred for coronary bypass surgery (2) Hypertensive emergency: Code(s): I16.1 - Hypertensive emergency Status: Acute Assessment and Plan: With evidence of end organ damage suggested by decompensated CHF and Cr of 1.5 BP better compared to admission. Continue Metoprolol and Lisinopril (3) Apical mural thrombus: Code(s): I51.3 - Intracardiac thrombosis, not elsewhere classified Status: Acute Assessment and Plan: Continue IV heparin. Will eventually need to start oral AC once angiogram completed. (4) Mitral regurgitation: Code(s): I34.0 - Nonrheumatic mitral (valve) insufficiency Status: Acute Assessment and Plan: Mild to moderate. probably secondary MR due to dilated LV and mitral annulus. Continue Lasix Subjective Date/time seen: 03/04/20 15:51 he feels okay today, underwent cardiac catheterization revealing severe 3 vessel coronary disease, he will need bypass surgery, will arrange for transfer for the Exam Const: General: no acute distress Eyes: Sclera: sclerae normal Neck: Neck: no JVD Carotids: no bruits Resp: Effort & Inspection: normal respiratory effort Auscultation: clear to auscultation bilaterally Cardio: Rate: regular rate and not tachycardic Rhythm: regular rhythm Heart sounds: no gallops, no murmurs and no rubs Other: ++ lower ext edema Skin: General skin exam: normal color Neuro: Cranial nerves: Yes Normal hearing present Speech: normal speech Extrem: General: normal to inspection and edema Psych: Affect: normal affect Objective Data Vital Signs Vital Signs: Vital Signs - 24 hr 03/03/20 16:00 03/03/20 16:39 03/03/20 18:00 Temperature 36.4 C Pulse Rate 103 H 90 87 Respiratory Rate 20 20 Blood Pressure 124/80 Pulse Oximetry 98 98 03/03/20 20:00 03/03/20 22:00 03/04/20 00:00 Temperature 36.5 C 36.6 C Pulse Rate 81 81 84 Respiratory Rate 20 18 Blood Pressure 136/74 143/92 H Pulse Oximetry 94 94 03/04/20 01:55 03/04/20 04:00 03/04/20 05:43 Temperature 36.6 C Pulse Rate 99 91 83 Respiratory Rate 20 Blood Pressure 151/86 H Pulse Oximetry 98 03/04/20 08:00 03/04/20 09:21 03/04/20 10:00 Temperature 36.6 C Pulse Rate 97 103 H 107 H Respiratory Rate 20 Blood Pressure 132/95 H Pulse Oximetry 99 03/04/20 12:00 03/04/20 14:00 Temperature 36.6 C Pulse Rate 90 90 Respiratory Rate 12 Blood Pressure 118/88 Pulse Oximetry 98 Intake/Output Intake/Output: Intake & Output 03/01/20 03/02/20 03/03/20 03/04/20 23:59 23:59 23:59 23:59 Intake Total 660 1946 3159 979 Output Total 3650 4100 3925 1900 [facility] [phone] Meds/Results Medications: Active Medications Generic Name Dose Route Start Last Admin Trade Name Freq PRN Reason Stop Dose Admin Furosemide 40 mg 03/04/20 09:00 03/04/20 09:22 Lasix Tablet PO 40 mg DAILY [facility] Administration Heparin Sodium (Porcine) 6,000 units 03/01/20 16:43 Heparin Sodium IV PUSH PRN PRN aPTT less than 55 seconds Heparin Sodium (Porcine) 3,000 units 03/01/20 16:43 03/02/20 15:25 Heparin Sodium IV PUSH 3,000 units PRN PRN Administration aPTT 55 - 70 seconds Hydralazine HCl 10 mg 03/02/20 09:20 03/02/20 09:46 Apresoline Hcl Inj IV PUSH 10 mg Q4H PRN Administration Blood Pressure - High Heparin Sodium/Dextrose 25,000 units in 250 mls @ 13 m
--- NOTE | 2020-03-04 15:53 | WPDCARDPROC ---
Cardiac Cath Procedure Note Date of procedure:: 03/04/20 Performing physician:: Alek Najera MD Procedure: 1. Left heart catheterization, selective coronary angiogram. 2. Angio-Seal device for arterial hemostasis 3. Conscious sedation. Filler Picker: Dr. Alek Najera Complications: None. history: 44-year-old gentleman with history of dyslipidemia was admitted vessel congestive heart failure, echocardiogram showed dilated left ventricle with severe left ventricular systolic dysfunction with apical akinesis and apical thrombus, was brought to the physical laboratory assistant for elective cardiac catheterization for definitive diagnosis of coronary disease Sedation: Conscious sedation, local anesthesia, using 1 mg of Versed said, 25 mcg of fentanyl, and using 1% lidocaine for local anesthesia. starting time is 2:35 p.m. ending time is 3:00 pm Technique: After informed consent was obtained from patient, was brought to the physical laboratory assistant, put in the physical laboratory assistant table, prepped and draped in usual sterile fashion. Five [place]alese sheath was inserted into the right common femoral artery, through the sheath 5 [place]alese JL4 catheter inserted, advanced to the left coronary artery, left coronary artery angiogram was obtained. The catheter was exchanged over guidewire into a 5 [place]alese JR4 catheter, advanced to the right coronary artery, right coronary artery angiogram was obtained. The catheter then was pulled, the sheath was pulled applying Angio-Seal device for arterial hemostasis. Patient tolerated the procedure no complication, taken from the physical laboratory assistant to his room in stable condition stable vital signs. Hemodynamics: aortic pressure 104/60 . LV pressure was not done due to left ventricular apical thrombus Angiographic findings: Left main: Medium size artery no significant disease or stenosis. Lad medium size artery showed proximal 75% stenosis, followed by mid and distal multiple areas of narrowing about 90%. First diagonal branch has ostial and proximal 90% disease, there seems to be a large diagonal that getting filled from the right system Left circumflex artery, medium size artery, with 1st and 2nd obtuse marginal multiple lesions of 90% disease RCA: Dominant vessel, very large caliber, but the PLV and PDA showed multiple lesions of 90% disease but then with distal area that could be target for bypass grafting LV: was not done due to presence of thrombus in the apex, echo showed severe left ventricular systolic dysfunction summary three-vessel coronary disease with multiple lesions, and severe left ventricular systolic dysfunction, and apical thrombus Recommendation: he will need coronary bypass surgery [place] to LAD 70s venous graft to diagonal branch obtuse marginals and PLV as well as PDA. Will make arrangement to transfer patient to [facility] in [place] for coronary bypass surgery.
[2020-03-04 16:49] LABS: Cholesterol 182 mg/dL (0-200); HDL Direct 29 mg/dL; Triglycerides 108 mg/dL (<150)
[2020-03-04 17:02] LABS: LDL Cholesterol Direct 146 mg/dL
--- NOTE | 2020-03-04 20:28 | PM.TDS ---
Transfer Discharge Sum: Prov Provider Date of admission: 03/02/20 15:14 Primary care physician: PHYSICIAN NOT ON STAFF Admitting clinician: Fidelia Roland MD Consults: 03/01/20 Consult to Physician Routine Comment: Consulting Provider: Alek Najera yardage caller/MD group to consult: Reinaldo Reason for consultation: new onset CHF, uncontrolled HTN Has provider been notified: Yes Attending physician on discharge: Zhao Segundo Discharging clinician: Zhao Segundo Anticipated date of transfer: 03/04/20 Receiving physician/facility: [facility] (arranged by rail bender) DS: Admitting Diagnosis Admitting Diagnosis Admitting Diagnosis: Lower extremity edema. DS: Discharge Diagnosis Discharge Diagnosis (1) Congestive heart failure: Qualifiers: Heart failure chronicity: acute Heart failure type: unspecified Qualified Code(s): I50.9 - Heart failure, unspecified Code(s): I50.9 - Heart failure, unspecified Status: Acute Assessment and Plan: Patient with newly diagnosed CHF. Echo results: EF 25-30%, thickened LV wall except for the mid to distal anteroseptal wall and apex that appears thinned. Symptomatically much improved with diuresis. Treated with Lasix IV, nitropaste, Toprol-XL and lisinopril. Cardiology following and appreciate their input. (2) CAD (coronary artery disease): Code(s): I25.10 - Atherosclerotic heart disease of [place] coronary artery without angina pectoris Status: Acute Assessment and Plan: Echo as mentioned above. Cardiology consulted and LHC recommended. Patient underwent LHC earlier today and was found to have three-vessel coronary disease with multiple lesions, and severe left ventricular systolic dysfunction, and apical thrombus. Recommended coronary bypass surgery which patient was agreeable. Patient transferred. (3) Apical mural thrombus: Code(s): I51.3 - Intracardiac thrombosis, not elsewhere classified Status: Acute Assessment and Plan: Echo showing: LV apical thrombus noted measures 1X1.5 cm. Related to the severe LV dysfunction. Patient has been started on heparin drip. He will need long-term anticoagulation. (4) Mitral regurgitation: Code(s): I34.0 - Nonrheumatic mitral (valve) insufficiency Status: Acute Assessment and Plan: Echo showing mild to moderate mitral valve regurgitation. MR severity could be underestimated due to excentric jet. will need further evaluation. (5) Renal failure: Code(s): N19 - Unspecified kidney failure Status: Acute Assessment and Plan: Patient with acute kidney injury with creatinine 1.5 on admission. Renal ultrasound shows bilateral increased renal cortical echogenicity consistent with medical renal disease felt related to his uncontrolled hypertension. Creatinine has normalized. Cr 1.2 today. (6) Hypertensive emergency: Code(s): I16.1 - Hypertensive emergency Status: Acute Assessment and Plan: BP 192/150 on admission. Evidence of end organ damage with decompensated congestive heart failure and elevated troponin and serum creatinine. ANti-HTn medications started and BP became better controlled overall. (7) Elevated troponin: Code(s): R79.89 - Other specified abnormal findings of blood chemistry Status: Acute Assessment and Plan: Troponin elevated to 0.046 but flat. Most likely related to the decompensated congestive heart failure and hypertensive emergency. He dose have underlying ischemic heart disease but not felt he had ACS. (8) Suspected sleep apnea: Code(s): R29.818 - Other symptoms and signs involving the nervous system St
== END 2020-03-04 23:40 | disposition short-term general hospital (02) | DRG 286 ==
LOC: ANHED 12:15 → ANHIMU 12:47
PROVIDERS: Internal Medicine; Physician Assistant; Specialist; Admitting Provider Family Medicine; Emergency Provider Emergency Medicine; Visit Provider Internal Medicine
PROC: 4A023N7 Measurement of Cardiac Sampling and Pressure, Left Heart, Percutaneous Approach (ICD-10-PCS; CPT 93454; principal; 2020-03-04 14:00)
PROC: 4A023N7 Measurement of Cardiac Sampling and Pressure, Left Heart, Percutaneous Approach (ICD-10-PCS; 2020-03-04 14:00)
DX: I13.0 Hypertensive heart and chronic kidney disease with heart failure and stage 1 through stage 4 chronic kidney disease, or unspecified chronic kidney disease (principal); J18.9 Pneumonia, unspecified organism; I16.1 Hypertensive emergency; N17.9 Acute kidney failure, unspecified; I51.3 Intracardiac thrombosis, not elsewhere classified; I50.9 Heart failure, unspecified; I25.10 Atherosclerotic heart disease of native coronary artery without angina pectoris; E16.1 Other hypoglycemia; R79.89 Other specified abnormal findings of blood chemistry; I25.9 Chronic ischemic heart disease, unspecified; G47.33 Obstructive sleep apnea (adult) (pediatric); I34.0 Nonrheumatic mitral (valve) insufficiency
CPT/HCPCS: 36415; 71046; 76775; 80048; 80053; 80061; 80069; 80076; 81003; 83036; 83735; 83880; 84100; 84443; 84484; 85025; 85027; 85610; 85730; 93005; 93454; 93970; 94660; 94762; 96374; 96375; 96376; 99285; A9270; C1760; C1887; C1894; C8929; G0269; G0378; J0360; J1644; J1940; J2250; J3010; J7040; Q9957

== ENCOUNTER 2020-09-23 09:00 | Outpatient (RCR) | payer BC, SELFPAY ==
[2020-06-27 08:10] VITALS: BP 100/78; PULSE 58; RESP 18; TEMP 36.6; O2SAT 97
[2020-06-27 08:44] VITALS: PULSE 55
--- NOTE | 2020-08-26 08:02 | PCCPR ---
Called out today for inclement weather.
--- NOTE | 2020-09-02 09:32 | PCCPR ---
Absent today for , plans to return Wednesday.
== END 2020-09-23 10:08 | disposition home or self-care (01) ==
LOC: ANHCPREHAB 09:00
PROVIDERS: Visit Provider Specialist
DX: Z95.1 Presence of aortocoronary bypass graft (principal)
CPT/HCPCS: 93798